=== PATIENT | female | born 1935 | race Two or more races ===

== ENCOUNTER 2021-06-19 11:54 | Day surgery (SDC) | payer MEDICAID ==
[~2021-06-19] VITALS: Ht 162.6 cm; Wt 72.6 kg
[2021-06-19] MEDS ORDERED: IV NS 0.9% 250 ML IV ONE (13:46)
[2021-06-19] MEDS ORDERED: CT SWABBABLE VALVE TRANS SET 1 EA INFUS.SET MC ONE (13:46)
[2021-06-19] MEDS ORDERED: IOHEXOL-350 100 ML VIAL IV ONE (13:46)
[2021-06-19] MEDS ORDERED: METOPROLOL TARTRATE INJ 5 MG/5 ML AMPUL ONE ×4 (13:46→14:24)
[2021-06-19] MEDS: METOPROLOL TARTRATE INJ 5 MG/5 ML AMPUL IVP PRN ×10 (13:52→14:37)
[2021-06-19] MEDS ORDERED: NITROGLYCERIN 0.4 MG/TAB BOTTLE SL PRN (14:00)
[2021-06-19 14:37] VITALS: BP 119/51
== END 2021-06-19 14:42 | disposition home or self-care (01) ==
LOC: CT 11:54
PROVIDERS: ATTEND Internal Medicine Interventional Cardiology
DX: I25.10 Atherosclerotic heart disease of native coronary artery without angina pectoris (principal); J90 Pleural effusion, not elsewhere classified; I51.7 Cardiomegaly
CPT/HCPCS: 75574; J3490 ×4; J7050; Q9967